=== PATIENT | female | born 1960 | race Caucasian/White ===

== ENCOUNTER 2017-01-17 15:11 | Emergency (ER) | payer MEDICAID ==
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
[2017-01-17] MEDS ORDERED: Zofran 4 MG/2 ML VIAL IV ONE (16:08)
[2017-01-17] MEDS ORDERED: Sodium Chloride 0.9% 1000 ML 1,000 ML IV STA (16:08)
[2017-01-17] MEDS ORDERED: Sodium Chloride 0.9% 1000 ML 1,000 ML ONE (16:16)
[2017-01-17] MEDS ORDERED: Zofran 4 MG/2 ML VIAL ONE (16:16)
[2017-01-17 16:34] LABS: Mean Cell Volume 73.6 fl (78-100); Mean Corpuscular Hemoglobin 22.4 pg (26-32); Mean Platelet Volume 9.4 fl (6-9.5); Platelet Count 364 K/mm3 (150-450); Red Cell Distribution Width 19.5 % (11.5-14.0)
[2017-01-17 16:58] LABS: ALBUMIN 3.8 g/dL (3.4-5.0); ALKALINE PHOSPHATASE 66 U/L (46-116); ANION GAP 13.6 MEQ/L (5-15); BLOOD UREA NITROGEN 14 mg/dL (9-20); CHLORIDE 102 mEq/L (98-107); Carbon Dioxide 29.9 mEq/L (21-32); Glucose 138 MG/DL (70-110); Potassium 3.4 mEq/L (3.5-5.1); SGOT/AST 19 U/L (15-37); SGPT/ALT 23 U/L (12-78); SODIUM 142 mEq/L (136-145); Total Protein 7.3 gm/dL (6.4-8.2)
[2017-01-17 17:01] LABS: TROPONIN < 0.017 ng/ml (0.000-0.056)
[2017-01-17 17:16] LABS: Eosinophil 1 % (0.00-3.0); Platelet Estimate NORMAL (NORMAL); Total Cells Counted 100
[2017-01-17 18:12] LABS: COMPLETE URINE MICROSCOPIC? YES; Collection Type CLEAN CATCH; Ph 9.5 (5-6)
[2017-01-17 18:13] LABS: ADD URINE CULTURE? NO (NO); Bacteria RARE /HPF (NEGATIVE); Epithelial Cells FEW /HPF (FEW)
[2017-01-17 19:07] VITALS: BP 125/65; PULSE 85; O2SAT 99
--- NOTE | 2017-01-17 22:46 | XRAY ---
Indication: Vomiting. Comparison: December 08, 2012. 2 views of the abdomen again nonacute and nonobstructed. Solid organs unremarkable. Osseous structures intact again with mild spinal degenerative changes. Single PA chest again demonstrates normal heart and lungs with new left lung calcified granulomas. Bony thorax intact with minimal degenerative changes. Impression: Negative abdomen. Nonacute one view chest with evidence for old granulomatous disease.
--- NOTE | 2017-01-17 22:46 | XRAY ---
Indication: Abdominal pain. Nausea and vomiting. Multiple contiguous axial images obtained through the abdomen and pelvis without contrast as ordered. Comparison: None Moderate bibasilar dependent atelectasis. Left lower lobe calcified granuloma. Heart is not enlarged. Noncontrasted stomach and bowel loops appear nonobstructed. Minimal descending and splenic diverticulosis without diverticulitis. Appendix not seen. No free fluid/air. 5 cm left lower pole exophytic cyst. 7 mm round right lobe hepatic hypodense lesion near the dome of the diaphragm probably cyst. In the peripheral right lobe of liver, there is a 11 mm calcification probably granulomatous. Tiny calcified splenic granulomas. Uterus surgically absent. Remaining liver, gallbladder, pancreas, spleen, adrenal glands, kidneys, ureters, and bladder appear unremarkable for noncontrast exam. Minimal aortoiliac calcifications without AAA. Osseous structures intact with mild degenerative changes throughout the spine. Impression: 1. No acute intra-abdominal/pelvic abnormalities on this noncontrast exam. 2. Incidental colonic diverticulosis, left renal cyst, probable hepatic cyst, and hepatic/splenic calcified granulomas. Comment: Preliminary interpretation was made by [facility]. Hepatic findings not reported and not critical. CTDI 16.08
== END 2017-01-17 19:06 | disposition home or self-care (01) ==
LOC: ED 15:11
DX: R11.10 Vomiting, unspecified (principal)
CPT/HCPCS: 36000; 36415; 74022; 74176; 80053; 81000; 83605; 84484; 85025; 96374; 99283; J2405

== ENCOUNTER 2022-01-05 19:29 | Emergency (ER) | payer OTHER ==
[2022-01-05 19:55] VITALS: O2SAT 95
[2022-01-05] MEDS ORDERED: Adacel Vial IM ONE ×2 (20:07→20:25)
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
[2022-01-05] MEDS ORDERED: TORAdol 30 mg Injection IM ONE (20:49)
[2022-01-05] MEDS ORDERED: TORAdol 30 mg Injection ONE (20:53)
[2022-01-05 21:05] VITALS: BP 150/88; PULSE 86
--- NOTE | 2022-01-06 08:34 | XRAY ---
Indication: Pain following fall. Posterior head injury. Multiple contiguous axial images obtained through the head without contrast. Comparison: None Posterior scalp demonstrates mild scalp hematoma right of midline. No acute intracranial hemorrhage, abnormal extra-axial fluid collection, or mass effect. Fourth ventricle is midline without hydrocephalus. Tobias-white matter differentiation preserved. Bony calvarium intact. Tiny fluid level in left maxilla sinus. Mastoid air cells are clear. Impression: Posterior scalp hematoma. No underlying fracture or acute intracranial hemorrhage. Incidental paranasal sinus disease.
--- NOTE | 2022-01-06 08:36 | XRAY ---
Indication: Pain following fall. Posterior head injury. Multiple contiguous axial images obtained through the cervical spine. Sagittal and coronal reformatted images obtained. Comparison: None Axial images negative for acute fracture, suspicious bony lesions, or spinal canal stenosis. There is mild C5-C6 degenerative endplate spurring. Sagittal and coronal reformatted images demonstrates normal alignment. Mild C5-C6 disc space narrowing. No acute compression fracture, subluxation, or jumped facet. Normal appearing craniocervical junction. Visualized noncontrasted soft tissues demonstrates minimal right carotid calcifications. Lung apices clear. Impression: 1. Negative acute fracture/subluxation. 2. Incidental C5-C6 degenerative disc disease.
== END 2022-01-05 21:13 | disposition home or self-care (01) ==
LOC: ED 19:29
DX: S09.90XA Unspecified injury of head, initial encounter (principal); S16.1XXA Strain of muscle, fascia and tendon at neck level, initial encounter; S00.01XA Abrasion of scalp, initial encounter; W08.XXXA Fall from other furniture, initial encounter; E78.5 Hyperlipidemia, unspecified; I10 Essential (primary) hypertension; E11.9 Type 2 diabetes mellitus without complications; Z72.0 Tobacco use; Z79.84 Long term (current) use of oral hypoglycemic drugs; Z79.891 Long term (current) use of opiate analgesic; Z79.899 Other long term (current) drug therapy
CPT/HCPCS: 70450; 72125; 90471; 90715; 96372; 99284; J1885

== ENCOUNTER 2022-09-08 16:12 | Emergency (ER) | payer OTHER ==
--- NOTE | 2022-09-08 16:22 | ERPHSYRPT ---
- History of Present Illness Time Seen by Provider: 09/08/22 16:21 Source: patient Exam Limitations: no limitations Physician History: This is a 62-year-old white female patient of Dr. Terrell who has had coughing symptoms for 2 weeks. In the last day or 2 its become less intermittent and more constant. She has had associated nausea without vomiting or diarrhea. She is mildly short of breath. She denies chest pain. She does not have significant abdominal pain. Current daily smoker of cigarettes. Patient has a history of gastroesophageal reflux disease, hyperlipidemia, hypertension and diabetes Timing/Duration: intermittent, worse Cough Quality/Degree: mild, dry cough Possible Cause: occasional episodes Modifying Factors: Improves With: coughing. Worsens With: lying down Associated Symptoms: cough, shortness of breath (Mild with coughing), No fever, No chest pain/soreness Allergies/Adverse Reactions: latex Allergy (Mild, Verified 09/08/22 16:25) Hives rash-from gloves and bandaids Penicillins Adverse Reaction (Verified 09/08/22 16:25) Hives Home Medications: Omeprazole [Prilosec] 1 tab PO DAILY 09/12/12 [History] Cetirizine HCl [Zyrtec] 10 mg PO DAILY 11/15/12 [History] Promethazine HCl 25 mg [Phenergan 25 mg] 25 mg PO Q4H PRN PRN 11/15/12 [History] Simvastatin 40 mg [Zocor 40 mg] 40 mg PO DAILY 11/15/12 [History] Venlafaxine HCl [Effexor Xr] 150 mg PO DAILY 11/15/12 [History] Albuterol Sulfate [Ventolin Hfa] 2 puff IH Q4H PRN PRN 03/31/21 [History] Dicyclomine HCl 20 mg [Bentyl 20 mg] 20 mg PO TID PRN PRN 03/31/21 [History] Fenofibrate,Micronized [Fenofibrate] 134 mg PO HS 03/31/21 [History] Fluconazole 150 mg PO DAILY 03/31/21 [History] Fluticasone Propionate [Allergy Relief] 2 spray NS DAILY 03/31/21 [History] Furosemide 20 mg [Lasix 20 mg] 20 mg PO DAILY 03/31/21 [History] Hydrocodone/Acetaminophen [Hydrocodon-Acetaminophn 10-325] 1 each PO Q6H PRN PRN 03/31/21 [History] Lisinopril/Hydrochlorothiazide [Lisinopril-Hctz 10-12.5 mg Tab] 1 each PO DAILY 03/31/21 [History] Meclizine HCl 25 mg [Antivert 25 mg] 25 mg PO TID PRN 03/31/21 [History] Metformin HCl 500 mg PO BID 03/31/21 [History] Ondansetron [Zofran Odt] 8 mg PO TID PRN PRN 03/31/21 [History] Potassium Chloride Tab* [Klor Con 10 MEQ] 20 meq PO DAILY 03/31/21 [History] Pramipexole Di-HCl [Pramipexole ER] 0.75 mg PO DAILY 03/31/21 [History] hydrOXYzine HCL [Hydroxyzine HCl] 10 mg PO TID 03/31/21 [History] Hx Tetanus, Diphtheria Vaccination/Date Given: No (unsure) Hx Influenza Vaccination/Date Given: Yes Hx Pneumococcal Vaccination/Date Given: Yes Travel Risk - International Travel Have you traveled outside of the country in past 3 weeks: No - Coronavirus Screening Are you exhibiting any of the following symptoms?: Yes Symptoms: Cough: New Onset, Shortness of Breath, Headaches/Body Aches/Fatigue Close contact with a COVID-19 positive Pt in past 14-21 Days: No - Vaccine Status Have you recieved a Covid-19 vaccination: Yes 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 - Vaccination Dates Date of 2cond Vaccination (if applicable): na - Review of Systems Constitutional: No Symptoms Eyes: No Symptoms Ears, Nose, & Throat: No Symptoms Respiratory: Cough, Dyspnea (With coughing) Cardiac: No Symptoms Abdominal/Gastrointestinal: Nausea (Occasional, intermittent), No Abdominal Pain, No Vomiting, No Diarrhea, No Constipation Musculoskeletal: Arthralgias, Myalgias Skin: No Symptoms Neurological: No Symptoms Psychological: No Symptoms Endocrine: No Symptoms Hematologic/Lymphatic: No Symptoms Immunological/Allergic: No Symptoms All Other Systems: Reviewed and Negative - Past Medical History Pertinent Past Medical History: Yes Neurological History: No Pertinent History ENT History: No Pertinent History Cardiac History: High Cholesterol, Hypertension, Other Respiratory History: No Pertinent History Endocrine Medical History: Diabetes Type II Musculoskeletal History: Bone Cancer, Osteoporosis GI Medical History: GERD, Ulcer History: No Pertinent History Psycho-Social History: Anxiety, Depression Female Reproductive Disorders: Cervical Cancer, Other Other Medical History: "chemo damaged heart and liver" - Past Surgical History Past Surgical History: Yes Neuro Surgical History: No Pertinent History Cardiac: Vascular Surgery Respiratory: No Pertinent History Gastrointestinal: Appendectomy Genitourinary: No Pertinent History Musculoskeletal: Orthopedic Surgery Female Surgical History: Hysterectomy Other Surgical History: cvl port place and remove for chemo tx. back surgery- spinal cancer. oopherectomy - Social History Smoking Status: Current every day smoker How long have you smoked: years Exposure to second hand smoke: Yes Drug Use: none Patient Lives Alone: No Significant Family History: no pertinent family hx - Nursing Vital Signs Nursing Vital Signs: Initial Vital Signs Temperature 98.6 F 09/08/22 16:25 Pulse Rate 109 H 09/08/22 16:25 Respiratory Rate 24 09/08/22 16:25 Blood Pressure 136/59 09/08/22 16:25 O2 Sat by Pulse Oximetry 96 09/08/22 16:25 Pain Scale Pain Intensity 8 - Physical Exam General Appearance: no apparent distress, alert Eye Exam: PERRL/EOMI, eyes nml inspection Ears, Nose, Throat Exam: normal ENT inspection, moist mucous membranes Neck Exam: normal inspection, non-tender, supple, full range of motion Respiratory Exam: airway intact, diminished breath sounds (Right upper lobe), No chest tenderness, No respiratory distress, No accessory muscle use, No wheezing, No stridor Cardiovascular Exam: regular rate/rhythm, normal heart sounds, normal peripheral pulses Gastrointestinal/Abdomen Exam: soft, normal bowel sounds, No tenderness Pelvic Exam: not done Rectal Exam: not done Back Exam: normal inspection, normal range of motion, CVA tenderness Extremity Exam: normal inspection, normal range of motion, pelvis stable Neurologic Exam: alert, oriented x 3, cooperative, 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 as tested, normal mood/affect, nml cerebellar function, nml station & gait, sensation nml Skin Exam: normal color, warm, dry Lymphatic Exam: No adenopathy SpO2 Interpretation: normal O2 Delivery: Room Air - Course Nursing assessment & vital signs reviewed: Yes Ordered Tests: Active Orders 24 hr Category Date Time Status CHEST 1 VIEW (PORTABLE) Stat Exams 09/08/22 16:44 Completed Lab/Rad Data: Laboratory Results 09/08/22 Range/Units 16:55 Influenza Type A Ag NEGATIVE (NEGATIVE) Influenza Type B Ag NEGATIVE (NEGATIVE) RSV (PCR) NEGATIVE (Negative) SARS-CoV-2 (PCR) NEGATIVE (NEGATIVE) - Progress Progress: improved, re-examined Air Movement: fair Progress Note: 09/08/22 17:37 Chest x-ray shows a new right upper lobe infiltrate and tiny right pleural effusion. Blood Culture(s) Obtained: No Antibiotics given: Yes Counseled pt/family regarding: lab results, diagnosis, need for follow-up, rad results - Departure Departure Disposition: Home Clinical Impression: Infiltrate of right lung present on chest x-ray Condition: Stable Critical Care Time: No Referrals: MANNY TERRELL [Primary Care Provider] - Follow up/PCP as directed Additional Instructions: Stop smoking. Drink plenty of fluids. Take your medication as prescribed. Prescriptions: Hydrocodone/Acetaminophen [Hydrocodone-Acetamn 7.5-325/15] 5 ml PO Q8H PRN PRN #60 ml MDD 15 ml PRN Reason: Cough Prednisone 10 mg [Deltasone 10 mg] 10 mg PO TID #12 tablet Levofloxacin [Levaquin 500 MG Tablet] 500 mg PO DAILY #7 tablet
--- NOTE | 2022-09-08 17:13 | XRAY ---
Indication: Chest pain and short of breath. Comparison: September 02, 2018 Portable chest demonstrates new large right upper lobe consolidating opacity presumed organizing infiltrate/atelectasis. Also new tiny right effusion. Remaining heart and left lung unremarkable. Bony thorax intact again with minimal degenerative changes.
[2022-09-08 17:37] LABS: INFLUENZA A NEGATIVE (NEGATIVE); INFLUENZA B NEGATIVE (NEGATIVE); RESPIRATORY SYNCTIAL VIRUS NEGATIVE (Negative); SARS-CoV-2 Xpert Express NEGATIVE (NEGATIVE)
[2022-09-08] MEDS ORDERED: Levofloxacin 500 MG Tablet PO ONE (17:49)
[2022-09-08] MEDS ORDERED: Levofloxacin 500 MG Tablet ONE (17:55)
[2022-09-08 18:51] VITALS: BP 128/61; PULSE 97; O2SAT 98
== END 2022-09-08 19:06 | disposition home or self-care (01) ==
LOC: ED 16:12
DX: R91.8 Other nonspecific abnormal finding of lung field (principal); R05.9 Cough, unspecified; R11.0 Nausea; R06.02 Shortness of breath; E78.5 Hyperlipidemia, unspecified; I10 Essential (primary) hypertension; E11.9 Type 2 diabetes mellitus without complications; Z79.891 Long term (current) use of opiate analgesic; Z79.52 Long term (current) use of systemic steroids; Z79.84 Long term (current) use of oral hypoglycemic drugs; Z79.899 Other long term (current) drug therapy; Z72.0 Tobacco use; Z20.828 Contact with and (suspected) exposure to other viral communicable diseases
CPT/HCPCS: 0241U; 71045; 99283; A9270-GY

== ENCOUNTER 2023-03-10 08:57 | Emergency (ER) | payer MEDICARE ==
--- NOTE | 2023-03-10 09:04 | ERPHSYRPT ---
- History of Present Illness Time Seen by Provider: 03/10/23 09:03 Source: patient, family Exam Limitations: no limitations Physician History: This is a 63-year-old white female patient of Dr. Terrell who had spontaneous onset of left nostril nosebleed that occurred this morning at 4 AM. Patient has a history of hypertension. She does not have a chronic, recurring history of nosebleeds. Patient denies trauma to the nose either in the the nose or external to it. Patient does smoke cigarettes daily. She has not taken her high blood pressure medicine today and her blood pressure reading on arrival to the emergency department was 159/100. Patient denies headache. Patient also has a history of gastroesophageal reflux disease, hyperlipidemia, diabetes and anxiety/depression issues. Patient called the paramedics who brought the patient to the emergency department. However, prior to arrival to the emergency department the left nostril bleed spontaneously stopped. At the time of her arrival to the emergency department and the time of this examination there is no evidence of any active bleeding. Patient does state that in the last few days she has been sneezing and has blown her nose a few times. Timing/Duration: abrupt onset, this morning Severity: mild ENT Location: nose Modifying Factors: Improves With: nothing Associated Symptoms: epistaxis Allergies/Adverse Reactions: latex Allergy (Mild, Verified 09/08/22 16:25) Hives rash-from gloves and bandaids Penicillins Adverse Reaction (Verified 09/08/22 16:25) Hives Home Medications: Omeprazole [Prilosec] 1 tab PO DAILY 09/12/12 [History] Cetirizine HCl [Zyrtec] 10 mg PO DAILY 11/15/12 [History] Promethazine HCl 25 mg [Phenergan 25 mg] 25 mg PO Q4H PRN PRN 11/15/12 [History] Simvastatin 40 mg [Zocor 40 mg] 40 mg PO DAILY 11/15/12 [History] Venlafaxine HCl [Effexor Xr] 150 mg PO DAILY 11/15/12 [History] Albuterol Sulfate [Ventolin Hfa] 2 puff IH Q4H PRN PRN 03/31/21 [History] Dicyclomine HCl 20 mg [Bentyl 20 mg] 20 mg PO TID PRN PRN 03/31/21 [History] Fenofibrate,Micronized [Fenofibrate] 134 mg PO HS 03/31/21 [History] Fluconazole 150 mg PO DAILY 03/31/21 [History] Fluticasone Propionate [Allergy Relief] 2 spray NS DAILY 03/31/21 [History] Furosemide 20 mg [Lasix 20 mg] 20 mg PO DAILY 03/31/21 [History] Hydrocodone/Acetaminophen [Hydrocodon-Acetaminophn 10-325] 1 each PO Q6H PRN PRN 03/31/21 [History] Lisinopril/Hydrochlorothiazide [Lisinopril-Hctz 10-12.5 mg Tab] 1 each PO DAILY 03/31/21 [History] Meclizine HCl 25 mg [Antivert 25 mg] 25 mg PO TID PRN 03/31/21 [History] Metformin HCl 500 mg PO BID 03/31/21 [History] Ondansetron [Zofran Odt] 8 mg PO TID PRN PRN 03/31/21 [History] Potassium Chloride Tab* [Klor Con 10 MEQ] 20 meq PO DAILY 03/31/21 [History] Pramipexole Di-HCl [Pramipexole ER] 0.75 mg PO DAILY 03/31/21 [History] hydrOXYzine HCL [Hydroxyzine HCl] 10 mg PO TID 03/31/21 [History] Hx Tetanus, Diphtheria Vaccination/Date Given: No (unsure) Hx Influenza Vaccination/Date Given: Yes Hx Pneumococcal Vaccination/Date Given: Yes Travel Risk - International Travel Have you traveled outside of the country in past 3 weeks: No - Coronavirus Screening Are you exhibiting any of the following symptoms?: No Close contact with a COVID-19 positive Pt in past 14-21 Days: No - Vaccine Status Have you recieved a Covid-19 vaccination: Yes 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 - Vaccination Dates Date of 2cond Vaccination (if applicable): na - Review of Systems Constitutional: No Symptoms Eyes: No Symptoms Ears, Nose, & Throat: Epistaxis (Left nostril at home) Respiratory: No Symptoms Cardiac: No Symptoms Abdominal/Gastrointestinal: No Symptoms Genitourinary Symptoms: No Symptoms Musculoskeletal: No Symptoms Skin: No Symptoms Neurological: No Symptoms Psychological: No Symptoms Endocrine: No Symptoms Hematologic/Lymphatic: No Symptoms Immunological/Allergic: No Symptoms All Other Systems: Reviewed and Negative - Past Medical History Pertinent Past Medical History: Yes Neurological History: No Pertinent History ENT History: No Pertinent History Cardiac History: High Cholesterol, Hypertension, Other Respiratory History: No Pertinent History Endocrine Medical History: Diabetes Type II Musculoskeletal History: Bone Cancer, Osteoporosis GI Medical History: GERD, Ulcer History: No Pertinent History Psycho-Social History: Anxiety, Depression Female Reproductive Disorders: Cervical Cancer, Other Other Medical History: "chemo damaged heart and liver" - Past Surgical History Past Surgical History: Yes Neuro Surgical History: No Pertinent History Cardiac: Vascular Surgery Respiratory: No Pertinent History Gastrointestinal: Appendectomy Genitourinary: No Pertinent History Musculoskeletal: Orthopedic Surgery Female Surgical History: Hysterectomy Other Surgical History: cvl port place and remove for chemo tx. back surgery- spinal cancer. oopherectomy - Social History Smoking Status: Current every day smoker How long have you smoked: years Exposure to second hand smoke: Yes Drug Use: none Patient Lives Alone: No Significant Family History: no pertinent family hx - Nursing Vital Signs Nursing Vital Signs: Initial Vital Signs Temperature 97.2 F 03/10/23 08:58 Pulse Rate 100 H 03/10/23 08:58 Respiratory Rate 18 03/10/23 08:58 Blood Pressure 159/100 03/10/23 08:58 O2 Sat by Pulse Oximetry 98 03/10/23 08:58 Pain Scale Pain Intensity 0 - Physical Exam General Appearance: no apparent distress, alert, anxiety Eye Exam: bilateral eye: normal inspection, PERRL, EOMI Ear Exam: bilateral ear: auricle normal Nasal Exam: normal inspection (No evidence of a clot or bleeding point on internal examination with an otoscope), No active bleeding, No dried blood, No sinus tenderness Throat Exam: normal, pharynx normal, No dental tenderness Neck Exam: normal inspection, non-tender, supple, full range of motion Cardiovascular/Respiratory Exam: chest non-tender, no respiratory distress Abdominal Exam: non-tender Neurologic Exam: alert, oriented x 3, 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 Level of complexity in the work-up performed is based on review of the patient's past medical history, review of the patient's medication list, review of the patient's drug allergy list, history present illness and physical findings on examination. No laboratory or radiographic studies necessary. We will place a few drops of Chong- Synephrine into the left nostril and apply a nasal clamp externally and leave this in place for approximately 20 minutes. After 20 minutes he will be removed. If there is no bleeding present at that time patient will be discharge d home with instructions to follow the instructions on the Chong-Synephrine package. Patient is to take her blood pressure medication and other medication at home and to avoid aspirin or any other medications/vitamins that may thin her blood in the next 48 hours. 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 Follow the instructions on the Chong- Synephrine medication provided to you and you wear the nasal clamp as instructed. Follow-up with Dr. Terrell's office today by phone to make arrangements for further evaluation management.
[2023-03-10] MEDS ORDERED: NEOSYNEPHRINE 0.5% NASAL SPRAY/DROPS NS ONE (09:08)
[2023-03-10] MEDS ORDERED: NEOSYNEPHRINE 0.5% NASAL SPRAY/DROPS ONE (09:12)
[2023-03-10 09:57] VITALS: BP 138/70; PULSE 88; O2SAT 97
== END 2023-03-10 09:57 | disposition home or self-care (01) ==
LOC: ED 08:57
DX: R04.0 Epistaxis (principal); I10 Essential (primary) hypertension; E78.5 Hyperlipidemia, unspecified; E11.9 Type 2 diabetes mellitus without complications; Z79.899 Other long term (current) drug therapy; Z72.0 Tobacco use
CPT/HCPCS: 99281; A9270-GY

== ENCOUNTER 2024-04-27 10:10 | Day surgery (SDC) | payer MEDICARE, OTHER ==
--- NOTE | 2024-04-26 08:43 | HP ---
HISTORY AND PHYSICAL HISTORY OF PRESENT ILLNESS: The patient is a 64-year-old female who presents with anemia. She has had a family history of colon cancer. Patient has been on chemo and iron. She has a history of lymphoma. She does see occasional bright red rectal bleeding on the tissue paper. She has some upper abdominal pain. She has some nausea and vomiting after eating. She is on Ozempic. Her last colonoscopy was a year ago. Her dad had colon cancer. We are also evaluating her for her gallbladder at some point. PAST MEDICAL HISTORY: Lymphoma, diabetes, GERD, hypertension. MEDICATIONS: Potassium, Ventolin, venlafaxine, Symbicort, simvastatin, Ozempic, Zofran, omeprazole, MiraLAX, lisinopril, Lasix, hydroxyzine, fenofibrate, docusate, cetirizine, dicyclomine. ALLERGIES: Penicillins, latex, and contrast dye. PAST SURGICAL HISTORY: Appendectomy, oophorectomy, back surgery, hysterectomy. SOCIAL HISTORY: Current smoker. Denies alcohol. FAMILY HISTORY: Ovarian cancer, colon cancer, diabetes. REVIEW OF SYSTEMS: CONSTITUTIONAL: Denies fever or chills. CHEST: Denies shortness of breath. CARDIOVASCULAR: Denies chest pain. ABDOMEN: Reports abdominal pain. PHYSICAL EXAMINATION: GENERAL: No acute distress. CARDIOVASCULAR: Regular rate and rhythm. RESPIRATORY: Nonlabored. No shortness of breath. ABDOMEN: Soft. ASSESSMENT: Anemia, family history of colon cancer. PLAN: EGD, colonoscopy with Dr. Aly Muro. This report was dictated for Dr. Muro by Rita Wren NP.
[2024-04-27] MEDS ORDERED: Lactated Ringers 1,000 ML IV ONE (10:55)
[2024-04-27] MEDS: Lactated Ringers 1,000 ML IV SCH (11:25)
[2024-04-27] MEDS ORDERED: Lactated Ringers 1,000 ML IV SCH (11:30)
[2024-04-27] MEDS ORDERED: DIPRIVAN 200 MG/20 ML IV ONE ×2 (13:26→13:42)
[2024-04-27] MEDS ORDERED: Versed 2 MG/2 ML Injection ONE (13:26)
[2024-04-27] MEDS ORDERED: GlucaGen 1 MG ONE (13:46)
[2024-04-27 14:23] VITALS: RESP 16; O2SAT 98
[2024-04-27 14:39] VITALS: BP 132/55; PULSE 68; TEMP 97.2
--- NOTE | 2024-04-30 19:48 | OP ---
SURGERY DATE/TIME: 04/27/2024 2747 - [id number] PREOPERATIVE DIAGNOSES: 1) Anemia. 2) Family history of colon cancer. POSTOPERATIVE DIAGNOSES: 1) Mild hemorrhagic gastritis. 2) Grade 3/4 gastroesophageal reflux disease. 3) Three polyps, 2 ascending 1 cm, and 1 cm descending. PROCEDURE: Colonoscopic examination with non-polypectomy x3. Anticipate followup 3 years C-scope. PREP SCORE: Excellent. WITHDRAWAL TIME: 6 minutes. SURGEON: Aly Muro MD INDICATION FOR PROCEDURE: The patient with anemia. Referred by Dr. Mac. DESCRIPTION OF PROCEDURE AND FINDINGS: Taken to endoscopy. Left lateral decubitus position. Scope introduced. Pharyngoesophageal junction normal. Esophagus normal. EG junction grade 3/4 GERD. No hiatal hernia. There was gastritis of the fundus, body, antrum. It was mildly hemorrhagic. There were no ulcers. Pylorus normal. Duodenal bulb normal. Second portion normal. Scope looped upon itself. No hiatal hernia. Scope withdrawn. Furniture Mover biopsy for NORBERTO. Anal digital examination was satisfactory. Scope was satisfactory. Severe sigmoid diverticulosis. Scope was then advanced. There was a 1 cm descending colon polyp that was taken. Over in the ascending colon, there were 2 polyps, 1 cm each. Both taken by hot biopsy forceps. Both submitted in a single container and labeled ascending. The base of the cecum, ileocecal valve, and appendiceal orifice was satisfactory. The rest of the exam was satisfactory. The patient tolerated the procedure well.
== END 2024-04-27 15:00 | disposition home or self-care (01) ==
LOC: SDC 10:10
PROVIDERS: ATTEND Surgery
DX: K21.9 Gastro-esophageal reflux disease without esophagitis (principal); D64.9 Anemia, unspecified; Z80.0 Family history of malignant neoplasm of digestive organs; E11.9 Type 2 diabetes mellitus without complications; K29.70 Gastritis, unspecified, without bleeding; D12.2 Benign neoplasm of ascending colon; D12.4 Benign neoplasm of descending colon
CPT/HCPCS: 82947; 93005; J1610; J2250; J2704